=== PATIENT | female | born 1990 | race Two or more races ===

== ENCOUNTER 2017-02-28 19:25 | Emergency (ER) | payer MEDICAID ==
--- NOTE | 2017-02-28 19:44 | EDPHY ---
H & P HPI/ROS: CHIEF COMPLAINT: Bilateral leg pain. HISTORY OF PRESENT ILLNESS: The patient is a 26-year-old female who presents emergency department via EMS after falling [place] The patient was in a "[place]" in [place] She was caught by current in flipped off of her inner tube. Her legs struck the bottom of the [place]. She now complains of moderate pain in the right knee, right acosta, right ankle and right foot. She also has moderate pain in the left ankle and left foot. She was able to ambulate after the fall. She did not strike her head or lose consciousness. She has no neck or back pain. No chest pain or shortness of breath. No abdominal pain. No pelvic pain. REVIEW OF SYSTEMS: My complete review of systems is negative except as mentioned in the HPI. Past Medical/Surgical History: Negative Past surgical history: Negative Social history: Patient does not smoke Smoking Status: Never smoked Physical Exam: Vitals noted GENERAL: Well-appearing, in no acute distress, alert. HEAD: No evidence of trauma. EYES: PERRLA, EOMI, normal to inspection. ENT: Airway intact, no dental or oral injury, no malocclusion, no hemotympanum , normal external examination. NECK: The trachea is midline. There is no crepitus. The C-spine is nontender. NEXUS criteria is negative (no midline tenderness, no distracting injury, no altered mental status, no recent alcohol use, no focal neurologic deficit). RESPIRATORY: Clear to auscultation bilaterally, no rales, rhonchi or wheezing. There is no crepitus or palpable rib fractures. CVS: Regular rate and rhythm, no rubs, murmurs, or gallops. ABDOMEN: Soft, nontender, nondistended, normal bowel sounds, no bruising or abrasions. Pelvis: Stable. No tenderness palpation. Hips full range of motion. BACK: Normal to inspection, no spinal tenderness, no spinal step off, no notable bruising or abrasions. SKIN: Normal color, warm, dry. No pallor or diaphoresis. EXTREMITIES: Right upper extremity: Atraumatic. No visible signs of trauma. No tenderness palpation. Neurovascular intact distally. Left upper extremity: Atraumatic. No visible signs of trauma. No tenderness palpation. Neurovascular intact distally. Right lower extremity: Patient has mild tenderness palpation over her right knee, right anterior acosta, right ankle and right foot. There is no notable swelling. She has an abrasion over her right acosta. Neurovascular intact distally. Left lower extremity: Patient has mild tenderness palpation over her left ankle. There is no visible deformity or bruising. No abrasion. Neurovascular intact distally. Atraumatic, neurovascularly intact distally in all extremities, pelvis is stable , hips with full range of motion, moves all extremities freely. NEURO/PSYCH: Alert and oriented x 3, GCS 15, normal mood and affect, normal motor sensory exam. Constitutional: Initial Vital Signs Temperature (C) 37.3 C 02/28/17 19:38 Heart Rate 100 02/28/17 19:38 Respiratory Rate 17 02/28/17 19:38 Blood Pressure 129/87 H 02/28/17 19:38 O2 Sat (%) 94 02/28/17 19:38 O2 Delivery Mode Room Air Allergies/Adverse Reactions: No Known Allergies Allergy (Unverified 02/28/17 19:37) Home Medications: Medication Instructions Recorded NK [No Known Home Meds] 02/28/17 Medical Decision Making - Diagnostics Imaging Results: Imaging Impressions Ankle X-Ray 02/28/17 19:46 Impression: Negative for acute fracture. Foot X-Ray 02/28/17 19:46 Impression: Negative for fracture. Tibia/Fibula X-Ray 02/28/17 19:46 Impression: Negative for fracture. ED Course/Re-evaluation: In the emergency department the patient had discomfort over bilateral lower extremities. X-rays were ordered. Right lower extremity x-ray: Please refer the dictated report. No fracture or acute abnormality The left lower extremity x-rays: Please refer the dictated report. No fracture or acute abnormality I discussed the results with the patient. I answered all her questions. She is given warnings prior to leaving. She will return with worsening symptoms. Differential Diagnosis: My differential includes but is not limited to fracture, dislocation, contusion , sprain, strain Departure - Departure Disposition: Home, Routine, Self-Care Clinical Impression: Contusion Qualifiers: Encounter type: initial encounter Contusion area: lower leg Laterality: unspecified laterality Qualified Code(s): S80.10XA - Contusion of unspecified lower leg, initial encounter Condition: Good Instructions: Contusion in Adults (ED) Additional Instructions: Your x-ray showed no broken bones. Return with increasing pain or any other concerns. Referrals: Christopher Flanagan MD [Medical Doctor] - 5-7 days, if not improved
[2017-02-28 21:44] VITALS: BP 124/83; PULSE 103; RESP 18; TEMP 98.2; O2SAT 95
== END 2017-02-28 21:44 | disposition home or self-care (01) ==
DX: S80.11XA Contusion of right lower leg, initial encounter (principal); S80.12XA Contusion of left lower leg, initial encounter; W18.09XA Striking against other object with subsequent fall, initial encounter